=== PATIENT | female | born 2000 | race African-American/Black ===

== ENCOUNTER 2020-08-02 18:30 | Emergency (ER) | payer SELFPAY ==
[2020-08-02 18:54] VITALS: BP 134/76; PULSE 100; TEMP 98.8; BMI 39.9
== END 2020-08-02 20:15 | disposition home or self-care (01) ==
LOC: JER 18:30 → JERFT 18:30
DX: S93.491A Sprain of other ligament of right ankle, initial encounter (principal); X50.9XXA Other and unspecified overexertion or strenuous movements or postures, initial encounter
CPT/HCPCS: 73610-TC-RT-FY; 99283-25

== ENCOUNTER 2020-10-31 22:39 | Emergency (ER) | payer OTHER ==
[2020-10-31 23:11] VITALS: TEMP 98.2; BMI 41.1
[2020-11-01 02:21] VITALS: BP 128/81; PULSE 86
== END 2020-11-01 02:35 | disposition home or self-care (01) ==
LOC: JER 22:39
DX: R45.89 Other symptoms and signs involving emotional state (principal); F43.0 Acute stress reaction
CPT/HCPCS: 70450-TC; 72125-TC; 82962; 93005; 93010; 99285-25

== ENCOUNTER 2022-06-11 13:10 | Emergency (ER) | payer SELFPAY ==
[2022-06-11 13:17] VITALS: BP 134/75; PULSE 102; RESP 18; TEMP 97.8; BMI 43.7
[2022-06-11 14:26] LABS: EPI CELLS 8 /uL (0-25.1); HYALINE CASTS 0 /uL (0-3.1); URINE APPEARANCE CLEAR; URINE BACTERIA >9,000 /uL (0-1359); URINE BILIRUBIN NEGATIVE (NEGATIVE); URINE COLOR YELLOW; URINE GLUCOSE (UA) NEGATIVE (NEGATIVE); URINE KETONE NEGATIVE (NEGATIVE); URINE LEUK ESTERASE 1+ (NEGATIVE); URINE NITRITE NEGATIVE (NEGATIVE); URINE PROTEIN NEGATIVE (NEGATIVE); URINE RBC 202 /uL (0-23.9); URINE WBC 65 /uL (0-25.8)
[2022-06-11] MEDS ORDERED: ACETAMINOPHEN 500 MG TABLET (FP) ONE (14:45)
== END 2022-06-11 14:51 | disposition home or self-care (01) ==
LOC: JERFT 13:10
DX: N30.01 Acute cystitis with hematuria (principal)
CPT/HCPCS: 36415; 81003; 87086; 87186; 87491; 87591; 99283-25

== ENCOUNTER 2022-07-21 19:06 | Emergency (ER) | payer OTHER ==
[2022-07-21 19:33] VITALS: BP 138/78; PULSE 98; RESP 20; TEMP 98.9; BMI 43.2
[2022-07-21 21:02] LABS: EPI CELLS 6 /uL (0-25.1); HYALINE CASTS 0 /uL (0-3.1); PH,URINE 7.5 (5.0-8.0); URINE APPEARANCE CLEAR; URINE BACTERIA 119 /uL (0-1359); URINE BILIRUBIN NEGATIVE (NEGATIVE); URINE COLOR YELLOW; URINE GLUCOSE (UA) NEGATIVE (NEGATIVE); URINE KETONE NEGATIVE (NEGATIVE); URINE LEUK ESTERASE 1+ (NEGATIVE); URINE NITRITE NEGATIVE (NEGATIVE); URINE PROTEIN NEGATIVE (NEGATIVE); URINE RBC 5 /uL (0-23.9); URINE UROBILINOGEN 0.2 mg/dL (0.2-1.0); URINE WBC 10 /uL (0-25.8)
[2022-07-21 21:16] LABS: HCG,QUALITATIVE URINE Negative
[2022-07-21] MEDS ORDERED: ACETAMINOPHEN 325 MG TABLET (FP) PO ONE (21:31)
[2022-07-21] MEDS ORDERED: CEFUROXIME AXETIL 500 MG TABLET PO ONE (21:31)
[2022-07-21] MEDS ORDERED: PHENAZOPYRIDINE HCL 100 MG TABLET (FP) PO ONE (21:31)
[2022-07-21] MEDS ORDERED: ACETAMINOPHEN 500 MG TABLET (FP) ONE (21:33)
[2022-07-21] MEDS ORDERED: PHENAZOPYRIDINE HCL 100 MG TABLET (FP) ONE (21:34)
== END 2022-07-21 21:49 | disposition home or self-care (01) ==
LOC: JER 19:06 → JERFT 19:06
DX: N30.00 Acute cystitis without hematuria (principal)
CPT/HCPCS: 81003; 84703; 87086; 99283-25